=== PATIENT | male | born 2005 | race Caucasian/White ===

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

== ENCOUNTER 2024-07-26 16:31 | Emergency (ER) | payer OTHER ==
[~2024-07-26] VITALS: Ht 188 cm; Wt 66.3 kg
[2024-07-26] MEDS ORDERED: NYST-38 PO (18:30)
[2024-07-26] MEDS ORDERED: AMOX875T2 PO (18:30)
[2024-07-26] MEDS: NYSTATIN 500,000U/5ML SUSP UDC SS ONE ×2 (18:34→18:41)
[2024-07-26] MEDS: AUGMENTIN 875 MG TAB PO ONE (18:35)
[2024-07-26 18:37] VITALS: BP 123/83; TEMP 99.9; O2SAT 99
== END 2024-07-26 18:42 | disposition home or self-care (01) ==
LOC: M ED 16:31
DX: K05.00 Acute gingivitis, plaque induced (principal); R22.0 Localized swelling, mass and lump, head

== ENCOUNTER 2025-06-07 13:45 | Emergency (ER) | payer OTHER ==
[~2025-06-07] VITALS: Ht 188 cm; Wt 69.1 kg
[~2025-06-07 13:45] MED LIST: AMOX875T2 PO; NYST-38 PO
[2025-06-07 13:48] VITALS: BP 129/88; TEMP 98.2; O2SAT 98
== END 2025-06-07 14:38 | disposition home or self-care (01) ==
LOC: M ED 13:45
DX: L02.01 Cutaneous abscess of face (principal); F17.210 Nicotine dependence, cigarettes, uncomplicated; Z79.2 Long term (current) use of antibiotics